=== PATIENT | female | born 1965 | race Caucasian/White ===

== ENCOUNTER 2017-09-09 10:52 | Outpatient (CLI) | payer BC ==
--- NOTE | 2017-09-09 11:44 | MMO ---
BILATERAL SCREENING MAMMOGRAM: Date: 09/09/17 HISTORY: 51-year-old female. Routine screening mammography. COMPARISON: 08/13/16, 06/27/15, 11/08/12, and 03/13/14. TECHNIQUE: CC and MLO views of both breasts are submitted for interpretation. This patient's mammogram was reviewed with the assistance of computer-aided detection. FINDINGS: The breasts are composed of scattered fibroglandular tissue. Bilaterally, no suspicious dominant mass , architectural distortion, or suspicious calcifications. Bilateral benign-appearing calcifications a re identified. IMPRESSION: BIRADS 2: Benign Finding(s) RECOMMENDATION: Annual mammogram. POS: [facility]
== END 2017-09-09 10:53 | disposition home or self-care (01) ==
LOC: SCSMAMMO 10:52
PROVIDERS: ATTEND Obstetrics & Gynecology
DX: Z12.31 Encounter for screening mammogram for malignant neoplasm of breast (principal)
CPT/HCPCS: 77067